=== PATIENT | male | born 1970 | race Asian ===

== ENCOUNTER 2024-05-21 17:30 | Emergency (ER) | payer SELFPAY ==
[2024-05-21] MEDS: Lidocaine 1% 10 ML MDV INJECT ONE (19:00)
[2024-05-21] MEDS: ceFAZolin 2 GM in Sodium Chloride 0.9% 50 ML IV ONE (21:01)
[2024-05-21] MEDS: Diphtheria,Pertussis(Acell),Tetanus Vaccine 0.5 ML Syringe IM ONE (21:02)
[2024-05-21] MEDS: Acetaminophen/HYDROcodone 325-5 MG Tab PO ONE (21:21)
== END 2024-05-21 22:50 | disposition home or self-care (01) ==
LOC: JD.ED 17:30
DX: S66.124A Laceration of flexor muscle, fascia and tendon of right ring finger at wrist and hand level, initial encounter (principal); S66.122A Laceration of flexor muscle, fascia and tendon of right middle finger at wrist and hand level, initial encounter; S66.120A Laceration of flexor muscle, fascia and tendon of right index finger at wrist and hand level, initial encounter; Z23 Encounter for immunization; X58.XXXA Exposure to other specified factors, initial encounter
CPT/HCPCS: 12016; 73130; 90471; 90715; 96365; 99283; A9270; J0690; J3490; 12005; 99284